=== PATIENT | male | born 2000 | race Caucasian/White ===

== ENCOUNTER 2022-01-08 09:05 | Emergency (ER) | payer MEDICAID ==
[~2022-01-08] VITALS: Ht 188 cm; Wt 106.8 kg
[2022-01-08] MEDS ORDERED: ACETAMINOPHEN 500 MG TABLET PO ONE (10:30)
[2022-01-08] MEDS ORDERED: MAG HYDROX/AL HYDROX/SIMETH ES 30 ML SUSPENSION UDCUP PO ONE (10:30)
[2022-01-08 10:45] LABS: COVID AG,FIA SOURCE NASAL SWAB
[2022-01-08 12:05] VITALS: BP 105/62
[2022-01-08] MEDS ORDERED: ACET-2080 PO (12:21)
[2022-01-08] MEDS ORDERED: IBUP-1554 PO (12:21)
== END 2022-01-08 13:27 | disposition home or self-care (01) ==
LOC: EMS 09:10
DX: J02.8 Acute pharyngitis due to other specified organisms (principal); J45.909 Unspecified asthma, uncomplicated; B97.89 Other viral agents as the cause of diseases classified elsewhere; F17.210 Nicotine dependence, cigarettes, uncomplicated; F12.90 Cannabis use, unspecified, uncomplicated; Z20.822 Contact with and (suspected) exposure to COVID-19
CPT/HCPCS: 87430; 99283

== ENCOUNTER 2023-10-23 20:50 | Emergency (ER) | payer MEDICAID, OTHER ==
[~2023-10-23] VITALS: Ht 180.3 cm; Wt 113.6 kg
[~2023-10-23 20:50] MED LIST: ACET-2080 PO; IBUP-1554 PO
[2023-10-23 21:00] VITALS: BP 145/73; PULSE 72; RESP 16; TEMP 98.4
== END 2023-10-23 23:00 | disposition left against medical advice (07) ==
LOC: EMS 21:04
DX: S61.412A Laceration without foreign body of left hand, initial encounter (principal); Z53.21 Procedure and treatment not carried out due to patient leaving prior to being seen by health care provider; W54.0XXA Bitten by dog, initial encounter; Y93.89 Activity, other specified; Y92.89 Other specified places as the place of occurrence of the external cause; Y99.8 Other external cause status
CPT/HCPCS: 73130-TC